=== PATIENT | male | born 1940 | race Caucasian/White ===

== ENCOUNTER 2016-11-21 08:47 | Day surgery (SDC) | payer MEDICARE ==
[~2016-11-21] VITALS: Ht 182.9 cm; Wt 74.8 kg
[~2016-11-21 08:47] MED LIST: 0.9% Sodium Chloride 1,000 ML IV SCH; ERGO2000 PO; OMEG300C3 PO; OMEP20CA11 PO; Sodium Chloride LOK Flush 10 mL Syringe IV PRN; TELM20TA PO; fentaNYL-PF 50 mCg/mL 2 mL Inj IVPUSH PRN
[2016-11-21 08:56] VITALS: BP 127/70; PULSE 58; RESP 14; O2SAT 98
[2016-11-21 09:47] VITALS: BP 117/81; PULSE 53; RESP 14; O2SAT 93
[2016-11-21 09:57] VITALS: BP 103/74; PULSE 44; RESP 14; O2SAT 95
--- NOTE | 2016-11-21 09:58 | ENDO ---
[address] [address] ENDOSCOPY PROCEDURE PATIENT: SHANEKA HONG : 1940 MR#: [id number] ADMIT: 11/21/2016 JOB ID: [id number] DATE: 11/21/2016 TYPE OF OPERATION: Esophagogastroduodenoscopy with biopsy and colonoscopy. PREOPERATIVE DIAGNOSIS(ES): Gastroesophageal reflux disease and colorectal cancer screening. POSTOPERATIVE DIAGNOSIS(ES): 1. Hiatal hernia. 2. Mild nonerosive gastritis. 3. Severe diverticulosis sigmoid colon. ANESTHESIA: 1. Fentanyl 50 mcg. 2. Versed 2 mg IV administered. COMPLICATION: None. BLOOD LOSS: Minimal. DESCRIPTION OF PROCEDURE: After the risks and benefits were explained to the patient, informed consent was obtained. After anesthesia administered, the upper endoscope was then inserted into the mouth intubating through the esophagus, stomach and second portion of duodenum. Mucosa carefully examined. After the procedure was done, the scope withdrawn and procedure terminated. The colonoscope was inserted from the rectum to the cecum. Mucosa carefully examined. Prep of the patient was excellent. After the procedure was done, the scope withdrawn and procedure terminated. FINDINGS: Upon inspection of the esophagus, the esophagus was normal without masses, ulcers, or lesions. Z-line located 40 cm from the incisors. Upon entering the stomach, the stomach was also normal without masses, ulcers or lesions. Retroflexion showed a small hiatal hernia. The stomach did show some mild nonerosive gastritis. Duodenal bulb, first portion were normal. Biopsies taken of the antrum and body of the stomach and distal esophagus. Upon inspection of the anus, no masses, hemorrhoids, ulcers or fissures that were seen. Throughout the entire examination, there was severe sigmoid diverticulosis. No polyps or masses were seen. Retroflexion was normal. IMPRESSION: 1. Severe sigmoid diverticulosis. 2. Mild nonerosive gastritis. 3. Hiatal hernia. RECOMMENDATIONS: 1. High-fiber diet. 2. Await pathology results. 3. Repeat colonoscopy in 10 years.
[2016-11-21 10:00] VITALS: BP 114/75; PULSE 43; RESP 14; O2SAT 95
--- NOTE | 2016-11-23 10:10 | PATH ---
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 Immunohistochemistry for Helicobacter pending, to be reported by addendum. Negative for intestinal metaplasia. Negative for dysplasia and malignancy. 2.GASTRIC BODY BIOPSY: DIFFUSE MILD TO MODERATE CHRONIC GASTRITIS INVOLVING FUNDIC MUCOSA. Immunohistochemistry for Helicobacter pending, to be reported by addendum. Negative for intestinal metaplasia. Negative for dysplasia and malignancy. 3.DISTAL ESOPHAGUS BIOPSY: SQUAMOUS MUCOSA AND GASTRIC CARDIA-TYPE MUCOSA, NEGATIVE FOR SPECIALIZED METAPLASIA OF [place]' S-TYPE ESOPHAGUS. Negative for dysplasia and malignancy. Rare eosinophil present within squamous epithelium, consistent with changes of chronic reflux. ICD10 code K29.70 GROSS DESCRIPTION: The specimen is received in three formalin filled containers labeled with the patient's name. 1). The specimen is sublabeled "antrum" and consists of 2 portions of tissue which aggregate to 0.2 x 0.2 x 0.2 CM. The specimen is entirely submitted in cassette 1A. 2). The specimen is sublabeled "body" and consists of 2 portions of tissue which aggregate to 0.3 x 0.3 x 0.2 CM. The specimen is entirely submitted in cassette 2A. 3). The specimen is sublabeled "distal esophagus" and consists of 2 tiny portions of tissue which aggregate to 0.2 x 0.1 x 0.1 CM. The specimen is entirely submitted in cassette 3A. 11/21/2016 [facility] MICRO DESCRIPTION: See diagnosis. ICD-9 CODES: CPT CODES: 1: 16705, 81530 2: 66670, 80843 3: 03888 PROCEDURE/ADDENDA: Immunohistochemistry SPI Interpretation {Not Entered} Results-Comments Immunohistochemistry Results: 1.ANTRUM BIOPSY: NEGATIVE FOR HELICOBACTER PYLORI BY IMMUNOHISTOCHEMISTRY. 2.GASTRIC BODY BIOPSY: NEGATIVE FOR HELICOBACTER PYLORI BY IMMUNOHISTOCHEMISTRY. This test was developed and its performance characteristics determined by [facility]. It has not been cleared or approved by the [place]. Food and Drug Administration. The FDA has determined that such clearance or approval is not necessary. This test is used for clinical purposes. It should not be regarded as investigational or for research. Electronically Signed Out Ranjith Anton MD Electronically Signed Out Ranjith Anton MD [facility] [address], [place] [address] Technical component performed at [facility], [address], [place], [address]
== END 2016-11-21 23:59 | disposition home or self-care (01) ==
LOC: END 08:47
PROVIDERS: ATTEND Internal Medicine Gastroenterology
DX: Z12.11 Encounter for screening for malignant neoplasm of colon (principal); K57.30 Diverticulosis of large intestine without perforation or abscess without bleeding; K44.9 Diaphragmatic hernia without obstruction or gangrene; K29.50 Unspecified chronic gastritis without bleeding; K21.9 Gastro-esophageal reflux disease without esophagitis; I10 Essential (primary) hypertension
CPT/HCPCS: 43239; 88305; 88342; G0121; G0500; J2250; J3010; J7030